=== PATIENT | female | born 1975 | race African-American/Black ===

== ENCOUNTER 2022-06-09 17:07 | Emergency (ER) | payer SELFPAY ==
[2022-06-09] MEDS ORDERED: Ketorolac Tromethamine 30 MG/ML VIAL ONE (19:00)
[2022-06-09] MEDS ORDERED: Dexamethasone 10 MG/ML VIAL ONE (19:00)
== END 2022-06-09 19:23 | disposition home or self-care (01) ==
LOC: CSHERS 17:07
DX: M62.838 Other muscle spasm (principal); I10 Essential (primary) hypertension; F17.210 Nicotine dependence, cigarettes, uncomplicated
CPT/HCPCS: 96372; 99283; J1100; J1885

== ENCOUNTER 2022-06-14 17:42 | Emergency (ER) | payer SELFPAY ==
[2022-06-14] MEDS ORDERED: Ketorolac Tromethamine 30 MG/ML VIAL ONE (19:49)
[2022-06-14] MEDS ORDERED: Acetaminophen 500 MG TAB ONE (19:49)
== END 2022-06-14 20:04 | disposition home or self-care (01) ==
LOC: CSHERS 17:42
DX: M11.011 Hydroxyapatite deposition disease, right shoulder (principal); I10 Essential (primary) hypertension; F17.210 Nicotine dependence, cigarettes, uncomplicated; Z79.899 Other long term (current) drug therapy
CPT/HCPCS: 96372; J1885